=== PATIENT | male | born 1950 | race Caucasian/White ===

== ENCOUNTER 2021-03-14 10:37 | Emergency (ER) | payer BC, MEDICARE ==
[~2021-03-14] VITALS: Ht 177.8 cm; Wt 81.6 kg
[~2021-03-14 10:37] MED LIST: ATOR10TA PO; DUTA0.5C PO
--- NOTE | 2021-03-14 10:43 | NUR ---
To ER bed 1, c/o bladder discomfort, unable to urinate since last night, 11/30 ps, aaox3, connected to monitor, breathing even and non labored.
--- NOTE | 2021-03-14 11:08 | NUR ---
URINE COLLECTED AND SENT TO LAB
--- NOTE | 2021-03-14 11:19 | NUR ---
LAB AT BEDSIDE
[2021-03-14 11:25] LABS: BASOPHILS # (AUTO) 0.2 K/uL (0.0-0.2); EOSINOPHILS % (AUTO) 0.8 % (0.0-6.0); HEMATOCRIT 44 % (39-51); HEMOGLOBIN 14.5 g/dL (13.5-17.5); LYMPHOCYTES # (AUTO) 1.2 K/uL (0.8-4.8); LYMPHOCYTES % (AUTO) 12.8 % (20.0-44.0); MEAN CORPUSCULAR HGB CONC 33 g/dl (31.0-36.0); MEAN CORPUSCULAR VOLUME 88 fL (80-96); MONOCYTES # (AUTO) 0.6 K/uL (0.1-1.30); MONOCYTES % (AUTO) 6.2 % (2.0-12.0); NEUTROPHILS # (AUTO) 7.2 K/uL (1.8-8.9); NEUTROPHILS % (AUTO) 78.2 % (43.0-81.0); PLATELET COUNT (AUTO) 193 K/uL (150-450); WHITE BLOOD COUNT (AUTO) 9.2 K/uL (4.3-11.0)
[2021-03-14 11:25] LABS: BILIRUBIN,URINE Negative (NEGATIVE); COLOR,URINE YELLOW (YELLOW); LEUKOCYTE ESTERASE ,URINE Negative (NEGATIVE); NITRITE, URINE Negative (NEGATIVE); PROTEIN,URINE Negative (NEGATIVE); UGLUCOSE Negative (NEGATIVE); UROBILINOGEN,URINE 0.2 EU/dL (0.2)
[2021-03-14 11:37] LABS: CALCIUM, SERUM 8.5 mg/dL (8.5-10.1); CREATININE 1.1 mg/dL (0.6-1.3); POTASSIUM 3.8 mmol/L (3.5-5.1)
[2021-03-14 11:39] LABS: BACTERIA,URINE None seen /HPF (None Seen); WBC,URINE NONE SEEN /HPF (0-3)
[2021-03-14] MEDS ORDERED: TAMS-12 PO (11:54)
--- NOTE | 2021-03-14 12:06 | NUR ---
Patient discharged to home in stable condition. Written and verbal after care instructions given. Patient verbalizes understanding of instruction.
[2021-03-14 12:08] VITALS: BP 121/84
== END 2021-03-14 12:07 | disposition home or self-care (01) ==
LOC: ER 10:40
DX: R33.9 Retention of urine, unspecified (principal); N40.0 Benign prostatic hyperplasia without lower urinary tract symptoms; Z88.8 Allergy status to other drugs, medicaments and biological substances; Z79.899 Other long term (current) drug therapy
CPT/HCPCS: 36415; 80048-TC; 81001; 85025-TC; 87086-TC

== ENCOUNTER 2021-03-17 00:21 | Emergency (ER) | payer MEDICARE, BC ==
[~2021-03-17] VITALS: Ht 177.8 cm; Wt 79.4 kg
[~2021-03-17 00:21] MED LIST changes: +TAMS-12 PO
--- NOTE | 2021-03-17 00:41 | NUR ---
PT AAOX4. BIBSELF C/O URINE COLOR IN HER LOOKS DARKER +BILATERAL FEET SWELLING. PLACED IN BED 9 ON MONITOR AND PULSE OX. AWAITING ORDERS.
--- NOTE | 2021-03-17 01:17 | NUR ---
US AT BEDSIDE
[2021-03-17 01:31] LABS: BASOPHILS # (AUTO) 0.1 K/uL (0.0-0.2); BASOPHILS % (AUTO) 0.8 % (0.0-2.0); EOSINOPHILS % (AUTO) 2.3 % (0.0-6.0); HEMATOCRIT 42 % (39-51); HEMOGLOBIN 14.2 g/dL (13.5-17.5); LYMPHOCYTES # (AUTO) 2.5 K/uL (0.8-4.8); LYMPHOCYTES % (AUTO) 24.3 % (20.0-44.0); MEAN CORPUSCULAR HGB CONC 34 g/dl (31.0-36.0); MEAN CORPUSCULAR VOLUME 87 fL (80-96); MONOCYTES # (AUTO) 0.9 K/uL (0.1-1.30); MONOCYTES % (AUTO) 8.3 % (2.0-12.0); NEUTROPHILS # (AUTO) 6.6 K/uL (1.8-8.9); NEUTROPHILS % (AUTO) 64.3 % (43.0-81.0); PLATELET COUNT (AUTO) 215 K/uL (150-450); RED BLOOD CELL COUNT(AUTO) 4.87 MIL/uL (4.5-6.0); WHITE BLOOD COUNT (AUTO) 10.2 K/uL (4.3-11.0)
[2021-03-17 01:32] LABS: BILIRUBIN,URINE NEGATIVE (NEGATIVE); COLOR,URINE YELLOW (YELLOW); LEUKOCYTE ESTERASE ,URINE NEGATIVE (NEGATIVE); NITRITE, URINE NEGATIVE (NEGATIVE); PROTEIN,URINE 30 mg/dl (NEGATIVE); UGLUCOSE NEGATIVE (NEGATIVE); UROBILINOGEN,URINE 0.2 EU/dL (0.2)
[2021-03-17 01:47] LABS: ALANINE AMINOTRANSFERASE 31 U/L (12-78); ALBUMIN 3.5 g/dL (3.4-5.0); ALKALINE PHOSPHATASE 72 U/L (46-116); ASPARTATE AMINOTRANSFERASE 23 U/L (15-37); BILIRUBIN,DIRECT 0.1 mg/dL (0.0-0.2); BILIRUBIN,TOTAL 0.5 mg/dL (0.2-1.0); CALCIUM, SERUM 8.6 mg/dL (8.5-10.1); CARBON DIOXIDE 26 mmol/L (21-32); CHLORIDE 106 mmol/L (98-107); CREATININE 1.2 mg/dL (0.6-1.3); GLUCOSE 109 mg/dL (74-106); POTASSIUM 4.4 mmol/L (3.5-5.1); SODIUM SERUM 141 mmol/L (136-145); UREA NITROGEN, BLOOD 18 mg/dL (7-18)
[2021-03-17 02:06] VITALS: BP 146/81
--- NOTE | 2021-03-17 02:06 | NUR ---
Patient discharged to home in stable condition. Written and verbal after care instructions given. Patient verbalizes understanding of instruction. Pt ambulated out of ED. VSS.
[2021-03-17 06:11] LABS: BACTERIA,URINE None seen /HPF (None Seen); SQUAMOUS EPITHELIAL CELL,UR None Seen /HPF (None Seen); WBC,URINE 0-2 /HPF (0-3)
[2021-03-17 06:12] LABS: CALCIUM OXALATE CRYSTALS,UR Few /HPF (None Seen)
== END 2021-03-17 02:07 | disposition home or self-care (01) ==
LOC: ER 00:23
DX: R31.9 Hematuria, unspecified (principal); R60.0 Localized edema; D68.0 Von Willebrand disease; N40.0 Benign prostatic hyperplasia without lower urinary tract symptoms; Z88.8 Allergy status to other drugs, medicaments and biological substances; Z79.899 Other long term (current) drug therapy
CPT/HCPCS: 36415; 71045-TC; 80048-TC; 80076-TC; 81001; 83880; 84484-TC; 85025-TC; 85730-TC; 93970-TC

== ENCOUNTER 2021-03-18 12:13 | Emergency (ER) | payer MEDICARE, BC ==
[~2021-03-18] VITALS: Ht 177.8 cm; Wt 77.1 kg
--- NOTE | 2021-03-18 12:40 | NUR ---
PT SEEN LAST SUNDAY FOR F/C INSERTION S/P URINE RETENSION, WAS TOLD TO COME BACK TO DISCONTINUE HER CATHETER
--- NOTE | 2021-03-18 12:45 | NUR ---
F/C DISCONTINUED PER ERMD VERBAL ORDER. PT TOLERATED PROCEDURE WELL.
--- NOTE | 2021-03-18 13:02 | NUR ---
PT DENIES PAIN AT THIS TIME. ALL NEEDS MET
[2021-03-18 14:00] VITALS: BP 126/77
== END 2021-03-18 14:36 | disposition home or self-care (01) ==
LOC: ER 12:18
DX: R33.9 Retention of urine, unspecified (principal); N40.0 Benign prostatic hyperplasia without lower urinary tract symptoms; Z88.8 Allergy status to other drugs, medicaments and biological substances; Z79.899 Other long term (current) drug therapy

== ENCOUNTER 2021-05-23 16:14 | Emergency (ER) | payer BC, MEDICARE ==
[~2021-05-23] VITALS: Ht 177.8 cm; Wt 77.6 kg
--- NOTE | 2021-05-23 17:00 | NUR ---
HER CATH FR [address] ALTMAN ORDER.
[2021-05-23] MEDS ORDERED: DUTA0.5C PO (17:28)
--- NOTE | 2021-05-23 18:00 | NUR ---
800 ML CLEAR, YELLOW COLOR URINE DRAINED FROM HER. NO MORE BLADDER DISTENION. DR ALTMAN AWARE.
--- NOTE | 2021-05-23 18:13 | NUR ---
Patient discharged to home in stable condition. Written and verbal after care instructions given. Patient verbalizes understanding of instruction. The patient is discharged with grace cath and leg bag per Dr Brock. Education provided. The patient verbalized understanding.
[2021-05-23 18:14] VITALS: BP 137/84
== END 2021-05-23 18:14 | disposition home or self-care (01) ==
LOC: ER 16:33
DX: R33.9 Retention of urine, unspecified (principal); N40.0 Benign prostatic hyperplasia without lower urinary tract symptoms; E78.5 Hyperlipidemia, unspecified; G89.29 Other chronic pain; D68.0 Von Willebrand disease; Z91.048 Other nonmedicinal substance allergy status; Z79.899 Other long term (current) drug therapy

== ENCOUNTER 2021-05-28 12:59 | Emergency (ER) | payer BC, MEDICARE ==
[~2021-05-28] VITALS: Ht 177.8 cm; Wt 80.3 kg
[2021-05-28 13:09] VITALS: BP 141/79
--- NOTE | 2021-05-28 13:09 | NUR ---
BIB SELF FOR HER CATH REMOVAL
[2021-05-28] MEDS ORDERED: TAMS-12 PO (13:31)
--- NOTE | 2021-05-28 14:54 | NUR ---
Patient discharged to home in stable condition. Written and verbal after care instructions given. Patient verbalizes understanding of instruction.
== END 2021-05-28 14:55 | disposition home or self-care (01) ==
LOC: ER 13:09
DX: Z46.6 Encounter for fitting and adjustment of urinary device (principal); N40.0 Benign prostatic hyperplasia without lower urinary tract symptoms; Z88.8 Allergy status to other drugs, medicaments and biological substances; Z60.2 Problems related to living alone; Z79.899 Other long term (current) drug therapy

== ENCOUNTER 2021-06-14 12:13 | Emergency (ER) | payer BC, MEDICARE ==
[~2021-06-14] VITALS: Ht 180.3 cm; Wt 79.8 kg
[2021-06-14] MEDS ORDERED: LIDOCAINE 2% JEL UROJET 10 ML MM ONE (13:01)
--- NOTE | 2021-06-14 14:17 | NUR ---
SEEN AND EVALUATED BY DR SANTIAGO. SENT HOME W/ F/C AND LEG BAG.
[2021-06-14 14:18] VITALS: BP 124/82
== END 2021-06-14 14:19 | disposition home or self-care (01) ==
LOC: ER 12:15
DX: R33.9 Retention of urine, unspecified (principal); N40.0 Benign prostatic hyperplasia without lower urinary tract symptoms; Z88.0 Allergy status to penicillin; Z88.8 Allergy status to other drugs, medicaments and biological substances; Z60.2 Problems related to living alone; Z79.899 Other long term (current) drug therapy
CPT/HCPCS: 51702; 99284; J3490

== ENCOUNTER 2021-06-21 13:09 | Emergency (ER) | payer BC, MEDICARE ==
[~2021-06-21] VITALS: Ht 180.3 cm; Wt 79.8 kg
[2021-06-21 13:26] VITALS: BP 130/81
--- NOTE | 2021-06-21 13:30 | NUR ---
PATIENT CAME FROM HOME WITH CC OF ABLE TO REMOVE BLOOD CLOTS FROM HIS [facility] LEG BAG. CONCERNED THAT HE HAS BLOOD CLOTS INSIDE THE CATHETER AND HE WANTS TO HAVE IT RECHECKED. PLACED COMFORTABLY ON ER TABLE. VITALS CHECKED.
--- NOTE | 2021-06-21 14:25 | NUR ---
IFC FROM HOME CHECKED FOR ACTIVE BLEEDING AND OBSTRUCTION. NO BLEEDING AND PATIENT CAN PASS OUT URINE
--- NOTE | 2021-06-21 14:47 | NUR ---
Patient discharged to home in stable condition. Written and verbal after care instructions given. Patient verbalizes understanding of instruction.
== END 2021-06-21 14:48 | disposition home or self-care (01) ==
LOC: ER 13:12
DX: Z46.6 Encounter for fitting and adjustment of urinary device (principal); N40.0 Benign prostatic hyperplasia without lower urinary tract symptoms; Z88.0 Allergy status to penicillin; Z88.8 Allergy status to other drugs, medicaments and biological substances; Z60.2 Problems related to living alone; Z79.899 Other long term (current) drug therapy

== ENCOUNTER 2022-12-18 16:31 | Emergency (ER) | payer MEDICARE, BC ==
[~2022-12-18] VITALS: Ht 177.8 cm; Wt 80.3 kg
[2022-12-18 19:05] LABS: BASOPHILS # (AUTO) 0.1 K/uL (0.0-0.2); BASOPHILS % (AUTO) 0.8 % (0.0-2.0); EOSINOPHILS # (AUTO) 0.2 K/uL (0.0-0.7); HEMATOCRIT 45 % (39-51); HEMOGLOBIN 14.6 g/dL (13.5-17.5); LYMPHOCYTES # (AUTO) 2.4 K/uL (0.8-4.8); MEAN CORPUSCULAR HEMOGLOBIN 28 PG (26.0-33.0); MEAN CORPUSCULAR HGB CONC 33 g/dl (31.0-36.0); MEAN CORPUSCULAR VOLUME 87 fL (80-96); MONOCYTES # (AUTO) 0.7 K/uL (0.1-1.30); MONOCYTES % (AUTO) 6.7 % (2.0-12.0); NEUTROPHILS # (AUTO) 7.2 K/uL (1.8-8.9); NEUTROPHILS % (AUTO) 67.5 % (43.0-81.0); PLATELET COUNT (AUTO) 211 K/uL (150-450); RED BLOOD CELL COUNT(AUTO) 5.16 MIL/uL (4.5-6.0); RED CELL DISTRIBUTION WIDTH 13.6 % (11.5-15.0); WHITE BLOOD COUNT (AUTO) 10.6 K/uL (4.3-11.0)
[2022-12-18 19:47] LABS: CARBON DIOXIDE 25 mmol/L (21-32); CHLORIDE 107 mmol/L (98-107); GLUCOSE 95 mg/dL (74-106); POTASSIUM 3.8 mmol/L (3.5-5.1); SODIUM SERUM 141 mmol/L (136-145); UREA NITROGEN, BLOOD 11 mg/dL (7-18)
[2022-12-18 20:10] LABS: C-REACTIVE PROTEIN 0.3 mg/dL (0.0-0.9)
[2022-12-18 20:14] VITALS: BP 121/67; TEMP 98.1; O2SAT 97
[2022-12-18] MEDS ORDERED: SULF1TAB48 PO (20:15)
[2022-12-18 20:44] LABS: ERYTHROCYTE SEDIMENTATION RATE 15 MM/HR (0-20)
== END 2022-12-18 20:16 | disposition home or self-care (01) ==
LOC: ER 16:31
DX: L03.116 Cellulitis of left lower limb (principal); Z88.0 Allergy status to penicillin; Z91.013 Allergy to seafood; Z88.5 Allergy status to narcotic agent; Z60.2 Problems related to living alone
CPT/HCPCS: 36415; 73630-TC; 80048-TC; 85025-TC; 85652-TC; 86140-TC; 93971-TC